=== PATIENT | female | born 1980 | race Caucasian/White ===

== ENCOUNTER 2016-09-19 00:06 | Emergency (ER) | payer MEDICAID ==
[~2016-09-19] VITALS: Ht 177.8 cm; Wt 77.9 kg
[~2016-09-19 00:06] MED LIST: DOCU-30 PO; IBUP800T PO; LABE100T3 PO; LISI5TAB7 PO; MULT-257 PO; OXYC-302 PO
[2016-09-19] MEDS ORDERED: KETOROLAC 30 MG/1 ML ONE ×2 (00:55→01:31)
[2016-09-19] MEDS ORDERED: KETOROLAC 30 MG/1 ML IVPush ONE (01:00)
[2016-09-19 01:08] LABS: HEMOGLOBIN 11.6 g/dL (11.7-16.4)
[2016-09-19 01:18] LABS: BLOOD UREA NITROGEN 13 mg/dL (7-18)
[2016-09-19 01:22] LABS: ASPARTATE AMINO TRANSFERASE 17 U/L (15-37)
[2016-09-19] MEDS ORDERED: KETOROLAC 30 MG/1 ML IM ONE (01:30)
[2016-09-19 01:39] LABS: HCG UR OBC PASS
[2016-09-19 01:40] LABS: PATH.CAST-FLAG NOT PRESENT; SPERM-FLAG NOT PRESENT; SRC-FLAG NOT PRESENT; XTAL-FLAG NOT PRESENT; YLC-FLAG NOT PRESENT
[2016-09-19] MEDS ORDERED: HYDROmorphone 1 MG/ML, 1ML ONE (02:44)
[2016-09-19] MEDS ORDERED: HYDROmorphone 1 MG/ML, 1ML IM ONE (03:00)
[2016-09-19 04:00] VITALS: BP 108/86
== END 2016-09-19 04:02 ==
LOC: ED 03:21
DX: N13.2 Hydronephrosis with renal and ureteral calculous obstruction (principal); N20.2 Calculus of kidney with calculus of ureter; R31.9 Hematuria, unspecified; I10 Essential (primary) hypertension; Z90.89 Acquired absence of other organs
CPT/HCPCS: 36415; 74176; 80053; 81001; 81025; 83690; 85025; 96372; 99285; J1170; J1885

== ENCOUNTER → 2019-11-06 | Outpatient (CLI) | payer MEDICAID, OTHER ==
[~2019-11-06] MED LIST changes: +DOCU-131 PO; -DOCU-30 PO; +IBUP-1223 PO; -IBUP800T PO; -LABE100T3 PO; +LABE100T6 PO
== END | disposition home or self-care (01) ==
LOC: CFH 08:10
PROVIDERS: ATTEND Physician Assistant
DX: N63.12 Unspecified lump in the right breast, upper inner quadrant (principal); R23.4 Changes in skin texture
CPT/HCPCS: 76642; 77066; G0279

== ENCOUNTER → 2019-11-20 | Outpatient (CLI) | payer OTHER, MEDICAID ==
[~2019-11-20] MED LIST changes: +GADOTERATE 10 MMOL/20 ML VIAL ONE; +OMNIPAQUE 350 MG/ML, 100ML BOTTLE ONE
== END | disposition home or self-care (01) ==
LOC: CFH 08:56
PROVIDERS: ATTEND Physician Assistant
DX: C50.211 Malignant neoplasm of upper-inner quadrant of right female breast (principal); N28.1 Cyst of kidney, acquired; I70.0 Atherosclerosis of aorta; D18.09 Hemangioma of other sites
CPT/HCPCS: 71260; 74177; 77049; 78306; A9503; A9575; Q9967; C8908

== ENCOUNTER 2020-02-23 08:58 | Day surgery (SDC) | payer OTHER, MEDICAID ==
[~2020-02-23] VITALS: Ht 175.3 cm; Wt 75.0 kg
[~2020-02-23 08:58] MED LIST changes: -GADOTERATE 10 MMOL/20 ML VIAL ONE; -OMNIPAQUE 350 MG/ML, 100ML BOTTLE ONE
[2020-02-23 09:51] VITALS: BP 138/95
[2020-02-23] MEDS ORDERED: LIDOCAINE 1%, 10ML ONE ×2 (10:01→11:41)
[2020-02-23] MEDS ORDERED: SODIUM CHLORIDE 0.9% 1,000 ML IV SCH (10:17)
[2020-02-23] MEDS ORDERED: CEFAZOLIN PMX 1GM/50ML 50 ML IV STA (10:18)
[2020-02-23] MEDS ORDERED: CEFAZOLIN PMX 1GM/50ML 50 ML ONE (10:20)
[2020-02-23] MEDS ORDERED: LIDOCAINE 1%, 20ML ONE (10:31)
[2020-02-23] MEDS ORDERED: FLUMAZENIL 0.1 MG/1 ML, 5ML ONE (10:34)
[2020-02-23] MEDS ORDERED: MIDAZOLAM 1 MG/ML, 5ML ONE (10:34)
[2020-02-23] MEDS ORDERED: FENTANYL PF 100 MCG/2ML ONE (10:34)
[2020-02-23] MEDS ORDERED: NALOXONE 1 MG/ML, 2ML ONE (10:35)
== END 2020-02-23 14:15 | disposition home or self-care (01) ==
LOC: OUT 08:58
PROVIDERS: ATTEND Internal Medicine Hematology & Oncology
DX: C50.811 Malignant neoplasm of overlapping sites of right female breast (principal); F17.210 Nicotine dependence, cigarettes, uncomplicated; Z17.0 Estrogen receptor positive status [ER+]; Z79.899 Other long term (current) drug therapy; Z91.040 Latex allergy status; Z90.13 Acquired absence of bilateral breasts and nipples; Z90.49 Acquired absence of other specified parts of digestive tract; Z98.51 Tubal ligation status; Z98.890 Other specified postprocedural states
CPT/HCPCS: 36561; 76937; 77001; 99156; 99157; C1788; J1642; J2250; J3010; J2310

== ENCOUNTER 2020-06-04 01:27 | Emergency (ER) | payer OTHER, MEDICAID ==
[~2020-06-04] VITALS: Ht 177.8 cm; Wt 79.3 kg
[2020-06-04] MEDS ORDERED: KETOROLAC 60 MG/2 ML IM ONE (02:30)
[2020-06-04] MEDS ORDERED: KETOROLAC 60 MG/2 ML ONE (02:38)
--- NOTE | 2020-06-04 02:42 | NUR ---
Patient to [place].
[2020-06-04 03:08] VITALS: BP 158/93
--- NOTE | 2020-06-04 04:12 | NUR ---
D/c instructions given. All questions and concerns addressed. Patient ambulatory with a steady gait. Belongings with patient.
== END 2020-06-04 04:13 | disposition home or self-care (01) ==
LOC: ED 02:27
DX: M25.572 Pain in left ankle and joints of left foot (principal); M79.89 Other specified soft tissue disorders; R05 Cough; R51.9 Headache, unspecified
CPT/HCPCS: 73610; 93971; 96372; 99284; J1885

== ENCOUNTER 2020-07-20 07:02 | Outpatient (CLI) | payer OTHER, MEDICAID | END 2020-07-20 23:59 | disposition home or self-care (01) | LOC: ROC 07:02 | PROVIDERS: ATTEND Radiology Radiation Oncology | DX: C50.811 Malignant neoplasm of overlapping sites of right female breast (principal); I10 Essential (primary) hypertension; Z79.899 Other long term (current) drug therapy; Z90.11 Acquired absence of right breast and nipple | CPT/HCPCS: 99214; G0463 ==

== ENCOUNTER 2020-09-23 10:25 | Day surgery (SDC) | payer OTHER, MEDICAID ==
[~2020-09-23] VITALS: Ht 177.8 cm; Wt 74.8 kg
[~2020-09-23 10:25] MED LIST changes: -OXYC-302 PO; +OXYC1TAB14 PO
[2020-09-23 10:59] VITALS: BP 154/101
[2020-09-23] MEDS ORDERED: SODIUM CHLORIDE 0.9% 1,000 ML IV SCH (11:30)
[2020-09-23] MEDS ORDERED: LIDOCAINE 1%, 10ML ONE (12:27)
[2020-09-23] MEDS ORDERED: MIDAZOLAM 1 MG/ML, 5ML ONE (12:31)
[2020-09-23] MEDS ORDERED: FENTANYL PF 100 MCG/2ML ONE (12:31)
[2020-09-23] MEDS ORDERED: NALOXONE 1 MG/ML, 2ML ONE (12:31)
[2020-09-23] MEDS ORDERED: FLUMAZENIL 0.1 MG/1 ML, 5ML ONE (12:31)
== END 2020-09-23 15:05 | disposition home or self-care (01) ==
LOC: RAD 10:25
PROVIDERS: ATTEND Internal Medicine Hematology & Oncology
DX: Z45.2 Encounter for adjustment and management of vascular access device (principal); C50.811 Malignant neoplasm of overlapping sites of right female breast; D50.9 Iron deficiency anemia, unspecified; Z17.0 Estrogen receptor positive status [ER+]; Z87.891 Personal history of nicotine dependence; Z90.13 Acquired absence of bilateral breasts and nipples; Z91.040 Latex allergy status
CPT/HCPCS: 36590; 77001; 99156; 99157; J2250; J3010; J7030; J2310

== ENCOUNTER 2021-03-20 11:37 | Outpatient (CLI) | payer OTHER, MEDICAID ==
[~2021-03-20 11:37] MED LIST changes: +OXYC1TAB12 PO; -OXYC1TAB14 PO
== END 2021-03-20 23:59 | disposition home or self-care (01) ==
LOC: CFH 11:37
PROVIDERS: ATTEND Internal Medicine Hematology & Oncology
DX: C50.811 Malignant neoplasm of overlapping sites of right female breast (principal); D50.9 Iron deficiency anemia, unspecified; M85.89 Other specified disorders of bone density and structure, multiple sites; E55.9 Vitamin D deficiency, unspecified
CPT/HCPCS: 77080